=== PATIENT | female | born 2000 | race Caucasian/White ===

== ENCOUNTER 2019-09-30 15:40 | Emergency (ER) | payer OTHER ==
--- NOTE | 2019-09-30 15:55 | EDM.PDOC ---
ED HPI GENERAL MEDICAL PROBLEM - General Chief Complaint: Chest Pain Stated Complaint: CHEST PAIN OFF AND ON X 1 YEAR Time Seen by Provider: 09/30/19 15:46 Source of Information: Reports: Patient History Limitations: Reports: No Limitations - History of Present Illness INITIAL COMMENTS - FREE TEXT/NARRATIVE: Patient's unfortunate 18-year-old female who presents emergency Department today with complaint of chest pain. Patient reports that she was exercising yesterday had a sharp stabbing type pain in her left chest with cough. Patient reports that she was going voluble in the symptoms lasted approximately 20 minutes to an hour and then completely resolved. Patient reports she's had similar episodes at least once every month or every 2 months when she exercises that she has increased cough and this resolves after exercising - Related Data Allergies Allergy/AdvReac Type Severity Reaction Status Date / Time No Known Allergies Allergy Verified 09/30/19 15:46 Home Meds: Home Meds Albuterol Sulfate [Proair Respiclick] 90 mcg IH Q4H PRN #1 [email or web address] 09/30/19 [ Rx] ED ROS GENERAL - Review of Systems Review Of Systems: See Below Constitutional: Denies: Fever, Chills Respiratory: Reports: Cough. Denies: Wheezing Cardiovascular: Reports: Chest Pain ED EXAM, GENERAL - Physical Exam Exam: See Below Exam Limited By: No Limitations General Appearance: Alert, WD/WN, No Apparent Distress Neck: Normal Inspection, Supple, Non-Tender, Full Range of Motion Respiratory/Chest: No Respiratory Distress, Lungs Clear, Normal Breath Sounds, No Accessory Muscle Use, Chest Non-Tender Cardiovascular: Normal Peripheral Pulses, Regular Rate, Rhythm, No Edema, No Gallop, No JVD, No Murmur, No Rub GI/Abdominal: Normal Bowel Sounds, Soft, Non-Tender, No Organomegaly, No Distention, No Abnormal Bruit, No Mass Neurological: Alert, Oriented, CN II-XII Intact, Normal Cognition, Normal Gait, Normal Reflexes, No Motor/Sensory Deficits Skin Exam: Warm, Dry, No Rash Course - Vital Signs Last Recorded V/S: Last Vital Signs Temp 98.2 F 09/30/19 15:46 Pulse 58 L 09/30/19 15:46 Resp 16 09/30/19 15:46 BP 129/70 09/30/19 15:46 Pulse Ox 100 09/30/19 15:46 Departure - Departure Time of Disposition: 15:53 Disposition: Home, Self-Care 01 Clinical Impression: Exercise-induced asthma Prescriptions: Albuterol Sulfate [Proair Respiclick] 90 mcg IH Q4H PRN #1 [email or web address] PRN Reason: Shortness Of Breath Instructions: How to Use a Soft Mist Inhaler Referrals: PCP,Not In Area [Primary Care Provider] - Additional Instructions: Home, rest, use your inhaler 1 puff prior to exercise, return as needed for worsening condition Sepsis Event Note - Evaluation Sepsis Screening Result: No Definite Risk - Focused Exam Vital Signs: Vital Signs Temp Pulse Resp BP Pulse Ox 09/30/19 15:46 98.2 F 58 L 16 129/70 100 Date Exam was Performed: 09/30/19 Time Exam was Performed: 15:52
== END 2019-09-30 16:12 | disposition home or self-care (01) ==
LOC: JD.ED 15:40
DX: J45.909 Unspecified asthma, uncomplicated (principal)
CPT/HCPCS: 99283; 99284